=== PATIENT | female | born 1995 | race Caucasian/White ===

== ENCOUNTER 2017-10-15 19:07 | Emergency (ER) | payer MEDICAID ==
[~2017-10-15] VITALS: Ht 162.6 cm; Wt 50.0 kg
[2017-10-15 20:01] LABS: CULTURE INDICATED? YES; MICROSCOPIC INDICATED
[2017-10-15 20:10] LABS: ALANINE AMINOTRANSFERASE 17 U/L (12-78); ALBUMIN 4.1 g/dL (3.4-5.0); ANION GAP 7 mmol/L (5-15); CALCIUM 8.9 mg/dL (8.5-10.1); CHLORIDE 106 mmol/L (98-107); CREATININE 0.73 mg/dL (0.55-1.02)
[2017-10-15 20:14] LABS: ALKALINE PHOSPHATASE 68 U/L (45-117); BILIRUBIN,TOTAL 0.5 mg/dL (0.2-1.0); TOTAL PROTEIN 7.7 g/dL (6.4-8.2)
[2017-10-15 20:23] LABS: MD YES; MEAN CORPUSCULAR HEMOGLOBIN 20.5 pg (27.0-34.8); MEAN CORPUSCULAR HGB CONC 31.1 g/dL (32.4-35.8); MEAN CORPUSCULAR VOLUME 65.9 fL (80-100); MEAN PLATELET VOLUME 9.3 fL (7.4-10.4); PLATELET COUNT 362 x10^3/uL (130-400); RED BLOOD COUNT 4.68 x10^6/uL (3.82-5.3); RED CELL DISTRIBUTION WIDTH 18.3 % (9.6-15.2)
[2017-10-15 20:24] LABS: EOS#(MANUAL) 0.12 x10^3/uL (0.0-0.4); EOS% (MANUAL) 1 % (1-7); LYMPH#(MANUAL) 2.14 x10^3/uL (1-3.4); LYMPHS% (MANUAL) 18 % (22-44); MONOS#(MANUAL) 0.36 x10^3/uL (0.3-2.7); MONOS% (MANUAL) 3 % (2-9); SEG#(MANUAL) 9.28 x10^3/uL (1.8-6.8); SEGS% (MANUAL) 78 % (42-75)
[2017-10-15 20:25] LABS: ANISOCYTOSIS 1+
[2017-10-15 20:44] LABS: <PLATELET ESTIMATE> ADEQUATE; <PLT MORPHOLOGY> NORMAL PLT MORPH; HYPOCHROMIA 1+; MICROCYTOSIS 1+; POLYCHROMASIA 1+
[2017-10-15 21:28] LABS: WET PREP WBCS FEW (FEW)
[2017-10-15] MEDS ORDERED: AZITHROMYCIN 500 MG TABLET PO ONE (21:30)
[2017-10-15] MEDS ORDERED: CEFTRIAXONE 250 MG IM ONE (21:30)
[2017-10-15] MEDS ORDERED: AZITHROMYCIN 500 MG TABLET ONE (21:31)
[2017-10-15 21:32] LABS: CLUE CELLS NONE SEEN (NONE SEEN)
[2017-10-15] MEDS ORDERED: CEFTRIAXONE 250 MG ONE (21:32)
[2017-10-15 22:05] VITALS: BP 112/74
== END 2017-10-15 22:07 | disposition home or self-care (01) ==
LOC: ED 22:01
DX: N39.0 Urinary tract infection, site not specified (principal); Z20.2 Contact with and (suspected) exposure to infections with a predominantly sexual mode of transmission; R10.9 Unspecified abdominal pain
CPT/HCPCS: 36415; 80053; 81001; 84703; 85025; 87077; 87086; 87210; 87491; 87591; 87808; 96372; 99284; J0696; 87186

== ENCOUNTER 2018-01-01 20:02 | Emergency (ER) | payer MEDICAID ==
[~2018-01-01] VITALS: Ht 160 cm; Wt 57.7 kg
[2018-01-01 20:03] VITALS: BP 113/58
[2018-01-01] MEDS ORDERED: DEXAMETHASONE 4 MG TABLET PO ONE (20:30)
[2018-01-01] MEDS ORDERED: DEXAMETHASONE 4 MG TABLET ONE (20:44)
== END 2018-01-01 21:13 | disposition home or self-care (01) ==
LOC: ED 21:07
DX: J02.8 Acute pharyngitis due to other specified organisms (principal); B97.89 Other viral agents as the cause of diseases classified elsewhere
CPT/HCPCS: 87081; 87880; 99284